=== PATIENT | female | born 2000 | race Caucasian/White ===

== ENCOUNTER → 2019-11-22 17:08 | Outpatient (CLI) | payer BC, SELFPAY ==
[2019-11-22 14:48] VITALS: BMI 22.6
[2019-11-22 22:35] LABS: Chlamydia Trachomatis by PCR Negative (Negative); Neisserai gonorrhoeae by PCR Negative (Negative); Probe Check PASS; Sample Adequacy Control PASS; Specimen Processing Control PASS
== END ==
PROVIDERS: PCP Pediatrics; Referring Provider Nurse Practitioner Women's Health; Visit Provider Nurse Practitioner Women's Health
DX: Z11.3 Encounter for screening for infections with a predominantly sexual mode of transmission (principal)
CPT/HCPCS: 87491; 87591

== ENCOUNTER → 2022-08-18 | Outpatient (CLI) | payer BC, SELFPAY ==
[2022-08-25 13:11] LABS: HPV Reflexed? NOT INDICATED
== END | disposition home or self-care (01) ==
LOC: LABSPEC 16:37
PROVIDERS: PCP Pediatrics; Referring Provider Registered Nurse; Visit Provider Registered Nurse
DX: Z12.4 Encounter for screening for malignant neoplasm of cervix (principal)
CPT/HCPCS: 88175; G0145

== ENCOUNTER 2023-07-20 16:00 | Outpatient (RCR) | payer BC, SELFPAY ==
--- NOTE | 2023-05-09 10:48 | HP.PTEVAL_ITS ---
Patient's Visit Information Visit Information Visit Information: URSULA REHMAN is a 22 year old F referred to Physical Therapy by Dr. Alexander Simpson MD with a diagnosis of Right Knee Pain. Date of Evaluation: 05/09/23 Physical Therapist: Irene Lester DPT Visit Plan Frequency: 2x /Week Duration: 6 Weeks Plan: Focus on LE and core strength/stabilization-poor squat mechanics Subjective Subjective: Patient reports that she has had 3 surgeries on her right knee. She tore her Plica- her first surgery was in [address] Shane and then had a r evision through [facility]- then had a complete MPFL by Dr. Staples at [facility] 2019. She felt good over the summer so she started running and she feels that she might have done something and is now having swelling, popping and pain. Pain is located in the lateral molina and the medial knee. Saw Dr. Staples about a year ago and he gave her a Cortisone injection and it helped of a while and then it came back. Went to see ortho Dr. Simpson and he did anx-ray and he thinks there is calcification and he wants to take the screws out- she wants to get the MRI before surgery- denied and they want her to have 6 weeks prior to having it completed. Worst: 8/10 Agg: running, standing, walking, stairs. Eases: ice, aleve, elevation, stretching Best: 3/10. Describes the pain as numb on the lateral side and sharp and achy on the medial side. She also has pain posterior knee. Now that its cold she can feel the screws on the inside. She is working out with the agency trainer and she is doing scissor kicks sidelying and LAQ, standing rubber bands hip abd/add, bike for 5 min, hip circles, clams. 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 Goes back to [place] after PT and MRI scheduled. PMHx/Meds: no changes since Dr. Simpson Objective Objective: Posture: fair throughout- forward head, rounded shoulders- can correct but does not maintain Gait: no deviation noted- does have valgus at the knees- mild pes planus Stairs: asc/desc 8 recip- poor control with descent SLS: increase sway and muscle activation ROM: 0-130 degrees Palpation: tender along medial joint line and superior patella- pain along lateral molina Strength: Core: poor, Hip: 4-/5 throughout, Knee: Right Extension: 34 Left Extension: 70 Right Flexion: 23 Left Flexion: 28, Ankle: 5/5 Girth: Right: Patella: 36 cm, 6 above: 49 cm Left 6 above: 51 cm Squat: poor mechanics- weight shift to the left- valgus and heels lift Balance/Special Test Scores Lower Extremity Functional Score: 35 Goals Goal 1:: Patient will report participation in home exercise program activities a minimum of 5 days per week, as adjunct to skilled physical therapy intervention in preparation for independent home management upon discharge. Goal Time Frame: 6-8 Weeks Goal 2:: Patient will report an increase of 9 points on the LEFS to show minimal clinical significant difference on patients functional outcome measure. Goal Time Frame: 6-8 Weeks Goal 3:: Patient will have good squat mechanics Goal Time Frame: 6-8 Weeks Goal 4:: Patient will report 80% improvement Goal Time Frame: 6-8 Weeks Rehabilitation Potential Physical Therapy Diagnosis: Patient presents with hypomobility- she has decreased LE and core strength/stabilization, flex and muscular endurance leading to poor squat mechanics and increased pain with ADL's Rehabilitation Potential: Good Anticipated Interventions Patient/Client Instruction: Educate patient on: Benefits of Fitness Program Therapeutic Exercise to Include: Strength training, Endurance training, Balance training, Coordination, Agility training, Body mechanics, Postural training, Flexibilty training, Gait and locomotor training, Neuromotor development, Passive ROM, Active ROM, Dynamic Lumbar Stabilization and Valeria Exercises TENS: Yes Cryotherapy (ice pack, ice massage): Yes Thermo therapy (hot pack): Yes Text: Thank you for the opportunity to evaluate your patient. For Medicare and Medicare HMO plans, please review the plan of care and approve it. It will need to be FAXED BACK to us at [phone] for Medicare purposes. For Medicare only, by signing this I certify the plan of care. Please let me know if there are questions or concerns regarding this plan of care. Physician Signature: Date:
--- NOTE | 2023-06-29 13:52 | HP.PTREVAL ---
Re-Evaluation Intro: Dr. Alexander Simpson MD, It has been my pleasure to treat URSULA REHMAN over the last 11 visits for Right Knee Pain. Please see the progress note below for an update on the physical therapy plan of care! Subjective Subjective: Pt reports some soreness after last session. Pt feels she still has some swelling with tight jeans and feels that she can feel the screws at random times. Pt is wanting to get an MRI. 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 Objective Objective/Function: ROM: WNL, some tightness in L adductor MMT: hip flex R 22 L 22.9 hip abd R 26.7 L 24.4 L hip ext L 23.9 R 8 knee ext L 29 R 20 R knee flex R 31 L 29.4 SQUAT: poor mechanics and ant lean, some improved performance with external cue of chair but still had ant knee pain GAIT: pigeon-toed, pt reported some popping and tightness PALPATION: tenderness at pes anserine, distal ITB, R adductor, R TFL Pt still demonstrates weakness in R quads and glute max. Pt appropriate to continue strengthening to help improve pain and tolerance to ex (running and working out at gym). Plan Plan Plan: Pt to take a 1 week break then return to begin transition into gym program and continue strengthening. Waiting to see if pt will have MRI. Address glute and quad strength, include STM to ITB and adductors prn. Continue strengthening and begin transitioning to gym program: include body weight and machine ex Pt still has greatest remaining deficits with R knee ext and hip ext Balance/Gait/Functional tests Balance/Special Test Scores Lower Extremity Functional Score: 58 Goals Goals Goal 1:: Patient will report participation in home exercise program activities a minimum of 5 days per week, as adjunct to skilled physical therapy intervention in preparation for independent home management upon discharge. Goal Time Frame: 6-8 Weeks Goal 2:: Patient will report an increase of 9 points on the LEFS to show minimal clinical significant difference on patients functional outcome measure. Goal Time Frame: 6-8 Weeks Goal Progress: 58/80 Goal 3:: Patient will have good squat mechanics Goal Time Frame: 6-8 Weeks Goal Progress: Progressing Goal 4:: Patient will report 80% improvement Goal Time Frame: 6-8 Weeks Goal Progress: Progressing Goal 5:: Pt will demonstrate symmetrical knee ext and hip ext strength Goal Time Frame: 2-4 Weeks Goal 6:: Pt will tolerate running for one mile with <2/10 pain Goal Time Frame: 4-6 Weeks Anticipated Interventions Anticipated Interventions Patient/Client Instruction: Educate patient on: Benefits of Fitness Program Therapeutic Exercise to Include: Strength training, Endurance training, Balance training, Coordination, Agility training, Body mechanics, Postural training, Flexibilty training, Gait and locomotor training, Neuromotor development, Passive ROM, Active ROM, Dynamic Lumbar Stabilization and Valeria Exercises TENS: Yes Cryotherapy (ice pack, ice massage): Yes Thermo therapy (hot pack): Yes Re-Evaluation Ending Re-evaluation ending: Please do not hesitate to contact me at [phone] by phone or if you have questions or concerns regarding this new plan of care! Sincerely, Barber Louis DPT
--- NOTE | 2023-09-13 11:18 | HP.PT.NRP ---
Patient Information Patient Information: URSULA REHMAN was seen in my office for initial evaluation on 05/09/23. The following Plan of Care was established for this patient: POC Established Initial Frequency: 2x /Week Initial Duration: 6 Weeks Anticipated Interventions Patient/Client Instruction: Educate patient on: Benefits of Fitness Program Therapeutic Exercise to Include: Strength training, Endurance training, Balance training, Coordination, Agility training, Body mechanics, Postural training, Flexibilty training, Gait and locomotor training, Neuromotor development, Passive ROM, Active ROM, Dynamic Lumbar Stabilization and Valeria Exercises TENS: Yes Cryotherapy (ice pack, ice massage): Yes Thermo therapy (hot pack): Yes Last Seen Last Seen: This patient was last seen in our office . Pertinent comments regarding their Physical therapy will appear below: Patient to trial gym program and return if concerns, at this time pt has not followed up and we will assume no concerns arose. Appropriate to be d/c at this time. At this point I will be discontinuing this patient from physical therapy. I would be happy to see this patient again in the future if found appropriate by the physician. Thank you! Irene Lester, DPT Balance/Gait/Functional tests Balance/Special Test Scores Lower Extremity Functional Score: 58
== END 2023-07-20 19:00 | disposition home or self-care (01) ==
LOC: PT 16:00
PROVIDERS: PCP Pediatrics; Referring Provider Orthopaedic Surgery Sports Medicine; Visit Provider Orthopaedic Surgery Sports Medicine
DX: M25.561 Pain in right knee (principal)
CPT/HCPCS: 97110; 97162; 97530

== ENCOUNTER → 2024-11-27 | Outpatient (CLI) | payer BC, SELFPAY ==
[2024-11-29 21:08] LABS: Chlamydia By Nucleic Acid AMP Negative (Negative); Gonococcus By Nucleic Acid AMP Negative (Negative)
== END | disposition home or self-care (01) ==
LOC: LABSPEC 16:00
PROVIDERS: PCP Pediatrics; Visit Provider Nurse Practitioner Women's Health
DX: Z11.3 Encounter for screening for infections with a predominantly sexual mode of transmission (principal)
CPT/HCPCS: 87491; 87591